=== PATIENT | male | born 1940 | race Caucasian/White ===

== ENCOUNTER → 2016-08-13 | Outpatient (CLI) | payer OTHER ==
[~2016-08-13] MED LIST: ADVIN50050 INH; ALBU0.08 INH; CALCTAB5 PO; CARV25TA2 PO; FINA5TAB PO; METH10TA6 PO; MONT1TAB3 PO; NITR0.4D TD; OPTIRAY 320 IV PRN; SIMV40TA2 PO; TAMS0.4C38 PO; WARF2TAB8 PO; WARF4TAB8 PO
--- NOTE | 2016-08-13 10:58 | DIAGNOSTIC IMAGING REPORT ---
ABDOMEN AND PELVIS CT WITH AND WITHOUT IV CONTRAST, UROGRAM PROTOCOL CT DOSE: 1664.44 mGycm HISTORY: R31.0 Gross hematuria PATIENT STATES NOT A DIABETIC E X0D E CTS6 TECHNIQUE: Multiaxial CT images of the abdomen and pelvis were performed both before and after the use of intravenous contrast to evaluate the urinary system. Maximal intensity projection images were performed at the workstation by the radiologist. COMPARISON STUDY: None. FINDINGS: There is a punctate stone within the lower pole the left kidney. No right renal or ureteral calculi identified. No hydronephrosis. Posterior decompression and fusion with pedicle screws and rods within the lower lumbar spine. There is an associated lumbar stimulator device. A pacemaker lead is noted in the heart. Bladder is not well-distended. This make out for the questionable mild bladder wall thickening. There is irregular filling defect within the bladder posteriorly. This favors a small amount of blood clot given the patient's history of hematuria. The mid right ureter and distal left ureter are not well opacified which results in suboptimal evaluation. Otherwise, no suspicious filling defects within the opacified bilateral renal collecting systems or ureters. A 6 mm hypodense lesion within the left kidney and a 5 mm hypodense lesion within the right kidney are too small to characterize. There are few subcentimeter hypodense lesions within the liver with the largest in the left hepatic lobe measuring 8 mm. These are also too small to characterize but statistically represent cysts. There is a 9 mm indeterminate hypodense lesion within the left kidney. The adrenal glands and pancreas are unremarkable. Cholecystectomy. Emphysema. There is a 10 x 7 mm peripheral nodule within the left lower lobe. No suspicious lytic or blastic osseous lesions. Small fat-containing left inguinal hernia. Cholecystectomy. No retroperitoneal lymphadenopathy. Colonic diverticulosis. No bowel wall thickening or obstruction. The appendix appears to be surgically absent. IMPRESSION: 1. Left-sided nephrolithiasis. No hydronephrosis. 2. No suspicious filling defects seen within the opacified bilateral renal collecting systems or ureters. 3. Irregular filling defect within the bladder which favors a blood clot given the patient's history of hematuria. 4. A 10 x 7 mm pulmonary nodule within the left lower lobe. Please refer to the chart below for recommended follow-up. 5. Emphysema. Please refer to below summary of Fleischner criteria recommendations for follow-up of incidental CT nodules (H Ese, Guidelines for management of small pulmonary nodules detected on CT scans: A statement from the Fleischner Society, Radiology 237: [phone].) Low Risk Patient: Minimal or no smoking or other known risk factors for malignancy <=4 mm: No follow-up needed. >4-6 mm: Initial follow-up CT at 12 months; if unchanged, no further follow-up. >6-8 mm: Initial follow-up CT at 6-12 months then at 18-24 months if no change. >8 mm: Follow-up CT at \R\3, 9, 24 months, or PET and/or biopsy. High Risk Patient: History of smoking or other known risk factors <=4 mm: Follow-up at 12 months; if unchanged, no further follow-up. >4-6 mm: Initial follow-up CT at 6-12 months then at 18-24 months if no change. >6-8 mm: Initial follow-up CT at 3-6 months then at 9-12 and 24 months if no change. >8 mm: Same as low risk patient. Note: Nodule size measured as average of length and width. Ground glass or partly solid nodules may require longer follow-up to exclude indolent adenocarcinoma. Electronically signed by: Ronn Reynolds M.D. 08/13/2016 10:56 AM Dictated Date/Time: 08/13/2016 10:38 AM
== END | disposition home or self-care (01) ==
LOC: C.CTS 09:49
PROVIDERS: ATTEND Urology
DX: R31.0 Gross hematuria (principal); R91.1 Solitary pulmonary nodule; J43.9 Emphysema, unspecified

== ENCOUNTER → 2016-08-25 | Outpatient (CLI) | payer OTHER ==
--- NOTE | 2016-08-25 11:40 | DIAGNOSTIC IMAGING REPORT ---
CHEST CT WITH CONTRAST CT DOSE: 755.73 mGy.cm HISTORY: [facility]91.1 [id number] X0D E [id number] TECHNIQUE: Multiaxial CT images of the chest were performed following the intravenous administration of contrast. COMPARISON: 08/13/2016 Findings: Solitary pulmonary nodule left lung base unchanged from the prior study. 9 x 7 mm greatest dimension. Lungs otherwise appear clear. No significant mediastinal or hilar adenopathy. IMPRESSION: Unchanged small pleural-based nodule left lung base. 2. CT of chest is otherwise negative. 3. No additional pulmonary nodularity or infiltrative change. 4. Nodule follow-up per Fleischner criteria noted on the patient's prior CT abdomen and pelvis report. Please refer to below summary of Fleischner criteria recommendations for follow-up of incidental CT nodules (Ryder Mulligan, Guidelines for management of small pulmonary nodules detected on CT scans: A statement from the Fleischner Society, Radiology 237: [phone].) Low Risk Patient: Minimal or no smoking or other known risk factors for malignancy <=4 mm: No follow-up needed. >4-6 mm: Initial follow-up CT at 12 months; if unchanged, no further follow-up. >6-8 mm: Initial follow-up CT at 6-12 months then at 18-24 months if no change. >8 mm: Follow-up CT at \R\3, 9, 24 months, or PET and/or biopsy. High Risk Patient: History of smoking or other known risk factors <=4 mm: Follow-up at 12 months; if unchanged, no further follow-up. >4-6 mm: Initial follow-up CT at 6-12 months then at 18-24 months if no change. >6-8 mm: Initial follow-up CT at 3-6 months then at 9-12 and 24 months if no change. >8 mm: Same as low risk patient. Note: Nodule size measured as average of length and width. Ground glass or partly solid nodules may require longer follow-up to exclude indolent adenocarcinoma. Electronically signed by: Erick Cool M.D. 08/25/2016 11:39 AM Dictated Date/Time: 08/25/2016 11:34 AM
== END | disposition home or self-care (01) ==
LOC: C.CTS 11:04
PROVIDERS: ATTEND Urology
DX: R91.1 Solitary pulmonary nodule (principal)

== ENCOUNTER → 2016-09-02 | Outpatient (CLI) | payer OTHER ==
[~2016-09-02] MED LIST changes: -OPTIRAY 320 IV PRN
--- NOTE | 2016-09-02 13:37 | DIAGNOSTIC IMAGING REPORT ---
PET/CT HISTORY: Solitary PULMONARY NODULE TECHNIQUE: PET/CT was performed from the base of the skull through the pelvis following the intravenous administration of 13.2 mCi of [id number]. Non-contrast CT imaging was performed over the same range without breath-hold for attenuation correction of PET images and anatomic correlation, but not for primary interpretation as it is not of standard diagnostic quality. CT DOSE: COMPARISON: Chest CT 08/25/2016. Abdomen and pelvis CT 08/13/2016. FINDINGS: HEAD AND NECK: There is no FDG-avid disease or significant lymphadenopathy in the imaged portions of the head and the neck. CHEST: Left-sided pacemaker. Stable 9 x 7 mm left lower lobe pulmonary nodule. This does not demonstrate abnormal FDG uptake at this time. No new pulmonary nodules. Emphysema. No FDG avid or enlarged mediastinal or hilar lymph nodes. ABDOMEN/PELVIS: Below the diaphragm, tracer is distributed physiologically in the gastrointestinal and genitourinary tracts. There is no significant lymphadenopathy and no FDG-avid disease. MUSCULOSKELETAL: There is no FDG-avid or destructive bone lesion. IMPRESSION: No abnormal FDG uptake associated with the 9 x 7 mm left lower lobe pulmonary nodule. Electronically signed by: Ronn Reynolds M.D. 09/02/2016 1:35 PM Dictated Date/Time: 09/02/2016 1:23 PM
== END | disposition home or self-care (01) ==
LOC: C.PET 09:42
PROVIDERS: ATTEND Surgery
DX: R91.1 Solitary pulmonary nodule (principal)